=== PATIENT | male | born 1950 | race African-American/Black ===

== ENCOUNTER 2017-05-15 18:24 | Emergency (ER) | payer SELFPAY ==
[~2017-05-15] VITALS: Ht 165.1 cm; Wt 84.0 kg
[~2017-05-15 18:24] MED LIST: ALTACE1.25 MG PO; ALTACE5 M1 PO; ALTACE5 MG PO; AMOXICILLIN/CL875 MG PO; AMOXICILLIN500 MG PO; ASPIRIN EC325 MG PO; AUGMENTIN875TAB OR; CORICIDI3 PO; CRESTOR10 MG PO; DEPO-MEDROL80 MG/ML IM; DUREZOL0.05 % OU; FISH OIL PO; FREESTYLE XX; FREESTYLELITE100 XX; GLIPIZIDE5 M2 PO; GLUCOPHAGE500 MG PO; ILEVRO0.3 %; LANCETS 30G30 G XX; LANSOPRAZOLE30 MG PO; LANTUS SOLOSTAR SC; LISINOPRIL5 MG PO; METFORMIN1000 MG PO; METFORMIN500 MG PO; MONITOR XX; NEXIUM40 MG PO; NITROSTAT0.4 MG SL; NO; NOVOLOG FLEXPEN SC; OMEPRAZOLE20 M1 PO; PEN NEEDLES31 GX6MM SC; POLYMYX OD; PRILOSEC20 MG/CAP PO; PRILOSEC40 MG PO; PROCTOSOL HC2.5 % RE; ROBITUSSIN AC10 ML PO; SIMVASTATIN20 MG PO; TRIMETHOPRIM OD; VIAGRA100 MG PO
[2017-05-15] MEDS ORDERED: KEFLEX500 M1 PO (19:58)
[2017-05-15 20:30] VITALS: BP 179/87
== END 2017-05-15 20:30 | disposition home or self-care (01) | DRG 605 ==
LOC: ED 18:24
PROC: 0HQNXZZ Repair Left Foot Skin, External Approach (ICD-10-PCS; principal; 2017-05-15)
DX: S91.112A Laceration without foreign body of left great toe without damage to nail, initial encounter (principal); E11.40 Type 2 diabetes mellitus with diabetic neuropathy, unspecified; I10 Essential (primary) hypertension; X58.XXXA Exposure to other specified factors, initial encounter

== ENCOUNTER 2018-02-13 18:54 | Emergency (ER) | payer SELFPAY ==
[~2018-02-13] VITALS: Ht 165.1 cm; Wt 86.0 kg
[~2018-02-13 18:54] MED LIST changes: +KEFLEX500 M1 PO
[2018-02-13] MEDS ORDERED: FLEXERIL PO (21:04)
[2018-02-13] MEDS ORDERED: ULTRAM50 M1 PO (21:04)
[2018-02-13 21:27] VITALS: BP 165/66
== END 2018-02-13 21:28 | disposition home or self-care (01) | DRG 552 ==
LOC: ED 18:54
DX: M54.5 Low back pain (principal); I10 Essential (primary) hypertension; E78.5 Hyperlipidemia, unspecified; E11.40 Type 2 diabetes mellitus with diabetic neuropathy, unspecified

== ENCOUNTER 2022-03-17 17:14 | Emergency (ER) | payer OTHER ==
[2022-03-17] VITALS (20 sets, daily range): BP systolic 136–183; BP diastolic 72–124
[~2022-03-17] VITALS: Ht 165.1 cm; Wt 68.4 kg
[~2022-03-17 17:14] MED LIST changes: +FLEXERIL PO; +ULTRAM50 M1 PO
[2022-03-17 18:26] LABS: BASO% 0.6 % (0-3); EOS% 0.6 % (0-8); HEMATOCRIT 43.3 % (39.0-50.0); HEMOGLOBIN 13.5 g/dl (14.0-18.0); IMMATURE GRANULOCYTES 0.3 % (0.0-5.0); LYMPH% 18.9 % (15-41); MEAN CORPUSCULAR HGB 22.7 pG CALC (26.0-32.0); MEAN CORPUSCULAR HGB CONC 31.2 g/dL CAL (32.0-36.0); MONO% 6.8 % (2-13); NEUT# 7.76 thou/uL (1.82-7.42); NEUT% 72.8 % (42-76); RED BLOOD COUNT 5.96 mill/uL (4.70-6.10); RED CELL DISTRI WIDTH 19.1 % (11.5-15.5)
[2022-03-17 18:36] LABS: MEAN CELL VOLUME 72.7 fL CALC (80.0-100.0)
[2022-03-17 18:41] LABS: PROTHROMBIN TIME 10.3 SECONDS (9.0-12.5)
[2022-03-17 18:42] LABS: ALBUMIN 4.5 g/dL (3.2-5.0); ALKALINE PHOSPHATASE 122 u/l (38-126); ANION GAP 20 (6-22 (CALC)); BILIRUBIN, TOTAL 0.9 mg/dL (0.2-1.3); BUN 8 mg/dL (8-23); BUN/CREATININE RATIO 10 (12-20 (CALC)); CARBON DIOXIDE 21 mmol/l (22-30); CHLORIDE 97 mmol/l (95-108); CREATININE 0.8 mg/dL (0.7-1.3); GFR FOR AFR.AMER. > 60 ML/MIN (>=60 (CALC)); GFR OTHER RACES > 60 ML/MIN (>=60 (CALC)); POTASSIUM 3.9 mmol/l (3.5-5.1); SGOT/AST 34 u/l (19-48); SODIUM 134 mmol/l (137-146); TOTAL PROTEIN 8.5 g/dL (6.3-8.2)
== END 2022-03-17 22:55 | disposition home or self-care (01) | DRG 313 ==
LOC: ED 17:14
PROVIDERS: Emergency Medicine
DX: R07.9 Chest pain, unspecified (principal); R91.1 Solitary pulmonary nodule; V43.52XA Car driver injured in collision with other type car in traffic accident, initial encounter; E11.40 Type 2 diabetes mellitus with diabetic neuropathy, unspecified; I10 Essential (primary) hypertension; E78.5 Hyperlipidemia, unspecified; Z79.84 Long term (current) use of oral hypoglycemic drugs
CPT/HCPCS: Q9967

== ENCOUNTER 2022-08-16 12:09 | Emergency (ER) | payer MEDICARE ==
[~2022-08-16] VITALS: Ht 165.1 cm; Wt 77.0 kg
[2022-08-16] VITALS (8 sets, daily range): BP systolic 113–146; BP diastolic 68–80
[2022-08-16 12:54] LABS: BASO% 0.6 % (0-3); EOS% 1.2 % (0-8); HEMOGLOBIN 13.2 g/dl (14.0-18.0); IMMATURE GRANULOCYTES 0.1 % (0.0-5.0); LYMPH% 28.4 % (15-41); MEAN CORPUSCULAR HGB 23.3 pG CALC (26.0-32.0); MEAN CORPUSCULAR HGB CONC 30.7 g/dL CAL (32.0-36.0); MONO% 8.2 % (2-13); NEUT# 5.72 thou/uL (1.82-7.42); NEUT% 61.5 % (42-76); RED BLOOD COUNT 5.66 mill/uL (4.70-6.10); RED CELL DISTRI WIDTH 19.1 % (11.5-15.5)
[2022-08-16 13:11] LABS: ALBUMIN 4.3 g/dL (3.2-5.0); ALKALINE PHOSPHATASE 76 u/l (38-126); ANION GAP 13 (6-22 (CALC)); BILIRUBIN, TOTAL 0.9 mg/dL (0.2-1.3); BUN 14 mg/dL (8-23); BUN/CREATININE RATIO 11 (12-20 (CALC)); CARBON DIOXIDE 28 mmol/l (22-30); CHLORIDE 103 mmol/l (95-108); CREATININE 1.3 mg/dL (0.7-1.3); GFR FOR AFR.AMER. > 60 ML/MIN (>=60 (CALC)); GFR OTHER RACES 55 ML/MIN (>=60 (CALC)); POTASSIUM 4.3 mmol/l (3.5-5.1); SGOT/AST 48 u/l (19-48); SODIUM 140 mmol/l (137-146); TOTAL PROTEIN 8.8 g/dL (6.3-8.2)
[2022-08-16] MEDS ORDERED: GABAPENTIN100 MG PO (14:43)
== END 2022-08-16 15:05 | disposition home or self-care (01) ==
LOC: ED 12:09
PROVIDERS: Family Medicine
DX: I45.10 Unspecified right bundle-branch block (principal); I10 Essential (primary) hypertension; E11.40 Type 2 diabetes mellitus with diabetic neuropathy, unspecified; E78.5 Hyperlipidemia, unspecified; Z79.4 Long term (current) use of insulin

== ENCOUNTER 2023-02-21 13:39 | Emergency (ER) | payer MEDICARE, OTHER ==
[~2023-02-21] VITALS: Ht 165.1 cm; Wt 84.0 kg
[~2023-02-21 13:39] MED LIST changes: +GABAPENTIN100 MG PO
[2023-02-21 14:43] VITALS: BP 143/59
[2023-02-21 14:45] VITALS: BP 148/80
[2023-02-21 15:00] VITALS: BP 141/73
[2023-02-21 15:16] VITALS: BP 153/80
[2023-02-21] MEDS ORDERED: MAXITROL 0.1 %1 SUS OD (15:17)
[2023-02-21 15:24] VITALS: BP 153/80
== END 2023-02-21 15:33 | disposition home or self-care (01) ==
LOC: ED 13:39
DX: S05.01XA Injury of conjunctiva and corneal abrasion without foreign body, right eye, initial encounter (principal); I10 Essential (primary) hypertension; E11.40 Type 2 diabetes mellitus with diabetic neuropathy, unspecified; E78.5 Hyperlipidemia, unspecified; Z79.4 Long term (current) use of insulin; X58.XXXA Exposure to other specified factors, initial encounter